=== PATIENT | female | born 1960 | race African-American/Black ===

== ENCOUNTER → 2016-11-21 | Outpatient (CLI) | payer OTHER ==
[2016-11-21 11:17] VITALS: BMI 27.1
== END ==
LOC: MNTWWP 11:00
PROVIDERS: ATTEND Family Medicine
DX: R73.09 Other abnormal glucose (principal)
CPT/HCPCS: 97802

== ENCOUNTER → 2016-12-18 | Outpatient (CLI) | payer OTHER ==
--- NOTE | 2016-12-20 09:34 | MM ---
Reason for exam: screening (asymptomatic). Last mammogram was performed 1 year ago. Physical Findings: A clinical breast exam by your physician is recommended on an annual basis and results should be correlated with mammographic findings. MG Screening Mammo w CAD Bilateral CC and MLO view(s) were taken. Prior study comparison: December 15, 2015, bilateral MG screening mammo w CAD. December 01, 2014, bilateral MG screening mammo w/o cad. There are scattered fibroglandular densities. Finding: There are typically benign linear fine calcifications in the right breast 2cm from the nipple. New finding since December 15, 2015. ASSESSMENT: Incomplete: need additional imaging evaluation, BI-RAD 0 RECOMMENDATION: Special view mammogram of the right breast. [facility] will attempt to contact patient to return for supplemental views.
== END | disposition home or self-care (01) ==
LOC: RADMAMWWP 08:40
PROVIDERS: ATTEND Family Medicine
DX: Z12.31 Encounter for screening mammogram for malignant neoplasm of breast (principal)

== ENCOUNTER → 2016-12-22 | Outpatient (CLI) | payer OTHER ==
--- NOTE | 2016-12-25 07:44 | MM ---
Reason for exam: additional evaluation requested from abnormal screening. Last mammogram was performed less than 1 month ago. Physical Findings: Nurse did not find any significant physical abnormalities on exam. MG Work Up Mamm w CAD RT LM and CC with magnification view(s) were taken of the right breast. Prior study comparison: December 18, 2016, bilateral MG screening mammo w CAD. December 15, 2015, bilateral MG screening mammo w CAD. There are scattered fibroglandular densities. Finding: There are fine, grouped/clustered calcifications in the 6 o'clock anterior position of the right breast 2 cm from the nipple consistent with prior exams on close examination. No significant changes in finding since December 18, 2016 and December 15, 2015. These results were verbally communicated with the patient and result sheet given to the patient on 12/22/16. ASSESSMENT: Benign, BI-RAD 2 RECOMMENDATION: Return to routine screening mammogram schedule for both breasts.
== END | disposition home or self-care (01) ==
LOC: RADMAMWWP 14:53
PROVIDERS: ATTEND Family Medicine
DX: R92.8 Other abnormal and inconclusive findings on diagnostic imaging of breast (principal)

== ENCOUNTER → 2017-12-10 | Outpatient (CLI) | payer OTHER ==
[2017-12-12 10:14] VITALS: BMI 24.7
== END | disposition home or self-care (01) ==
LOC: MNTWWP 12:43
PROVIDERS: ATTEND Family Medicine
DX: R73.09 Other abnormal glucose (principal)
CPT/HCPCS: 97802

== ENCOUNTER → 2017-12-19 | Outpatient (CLI) | payer OTHER ==
--- NOTE | 2017-12-20 13:26 | MM ---
Reason for exam: screening (asymptomatic). Last mammogram was performed 1 year ago. Physical Findings: A clinical breast exam by your physician is recommended on an annual basis and results should be correlated with mammographic findings. MG Screening Mammo w CAD Bilateral CC and MLO view(s) were taken. Prior study comparison: December 22, 2016, right breast MG work up mamm w CAD RT. December 18, 2016, bilateral MG screening mammo w CAD. No significant changes when compared with prior studies. ASSESSMENT: Benign, BI-RAD 2 RECOMMENDATION: Routine screening mammogram of both breasts in 1 year.
== END | disposition home or self-care (01) ==
LOC: RADMAMWWP 12:49
PROVIDERS: ATTEND Family Medicine
DX: Z12.31 Encounter for screening mammogram for malignant neoplasm of breast (principal)
CPT/HCPCS: 77067

== ENCOUNTER 2018-06-07 10:54 | Day surgery (SDC) | payer OTHER ==
[2018-06-04 14:12] VITALS: BMI 24.1
[~2018-06-07 10:54] MED LIST: LACTATED RINGERS 1,000 ML IV SCH
[2018-06-07 12:04] VITALS: RESP 16; TEMP 97.3
[2018-06-07] MEDS ORDERED: LIDOCAINE 1% 20 ML VIAL (10MG/ML) FOR IV START INTRADERMA ONE (12:09)
[2018-06-07] MEDS ORDERED: PROPOFOL 10 MG/ML 20 ML VIAL IV ONE (13:44)
--- NOTE | 2018-06-07 14:05 | P.PCN ---
Date of Procedure: 06/07/18 Procedure(s) Performed: BRIEF HISTORY: Patient is a 58-year-old pleasant -[place] female scheduled for an elective colonoscopy as a part of evaluation of prior history of colon polyps. Last colonoscopy was 5 years ago. PROCEDURE PERFORMED: Colonoscopy. PREOPERATIVE DIAGNOSIS: History of colon polyps. IV sedation per Anesthesia. PROCEDURE: After informed consent was obtained, the patient, was brought into the endoscopy unit. IV sedation was administered by Anesthesia under continuous monitoring. Digital rectal examination was normal. Initially the Olympus CF-160 flexible video colonoscope was then inserted in the rectum, gradually advanced into the cecum without any difficulty. Careful examination was performed as the scope was gradually being withdrawn. Ileocecal valve and the appendiceal orifice were visualized and appeared normal. Prep was poor and several areas of the colon. Mucosa of the cecum, ascending colon, transverse colon, descending colon, sigmoid colon, and rectum appeared normal. Retroflexion was performed in the rectum and no lesions were seen. The patient tolerated the procedure well. IMPRESSION: Normal-appearing colon from rectum to cecum with no evidence of colorectal neoplasia. Poor prep in several areas of the colon RECOMMENDATIONS: Findings of this examination were discussed with the patient as well as her family. She was advised to have a repeat surveillance colonoscopy in 5 years from now because of the prior history of colon polyps.
[2018-06-07 14:07] VITALS: PULSE 79
[2018-06-07 14:33] VITALS: BP 133/84
== END 2018-06-07 14:47 | disposition home or self-care (01) ==
LOC: ORWHC2ENDO 10:54
PROVIDERS: ATTEND Internal Medicine Gastroenterology
DX: Z12.11 Encounter for screening for malignant neoplasm of colon (principal); Z79.01 Long term (current) use of anticoagulants; Z79.899 Other long term (current) drug therapy; Z86.010 Personal history of colon polyps; I10 Essential (primary) hypertension; Z86.718 Personal history of other venous thrombosis and embolism; Z86.711 Personal history of pulmonary embolism; Z79.82 Long term (current) use of aspirin
CPT/HCPCS: J2704; G0105

== ENCOUNTER 2018-08-21 08:13 | Inpatient (IN) | payer OTHER ==
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
[2018-08-21 09:01] LABS: Basophils % (A) 1 %; Eosinophils # (A) 0.1 k/uL (0-0.7); Eosinophils % (A) 1 %; HCT 34.1 % (34.0-46.0); HGB 10.7 gm/dL (11.4-16.0); Hypochromasia Slight; Lymphocytes # (A) 2.5 k/uL (1.0-4.8); Lymphocytes % (A) 34 %; MCH 22.2 pg (25.0-35.0); MCHC 31.4 g/dL (31.0-37.0); MCV 70.9 fL (80.0-100.0); Mean Platelet Volume 6.7; Microcytosis Moderate; Monocytes # (A) 0.3 k/uL (0-1.0); Monocytes % (A) 4 %; Neutrophils # (A) 4.2 k/uL (1.3-7.7); Neutrophils % (A) 58 %; Platelet Count 264 k/uL (150-450); RBC 4.81 m/uL (3.80-5.40); RDW 15.7 % (11.5-15.5); WBC 7.2 k/uL (3.8-10.6)
[2018-08-21 09:06] LABS: Glucose,Whole Blood 100 mg/dL (75-99)
[2018-08-21 09:12] LABS: INR 0.9 (<1.2); Partial Thromboplastin Time 24.4 sec (22.0-30.0); Prothrombin Time 10.2 sec (9.0-12.0)
[2018-08-21 09:13] LABS: ALT 34 U/L (9-52); AST 35 U/L (14-36); African American GFR (CKD) >90 (>60 ml/min/1.73 sqM); Albumin 4.3 g/dL (3.5-5.0); Alcohol <10 mg/dL; Alkaline Phosphatase 97 U/L (38-126); Anion Gap 10 mmol/L; Blood Urea Nitrogen 35 mg/dL (7-17); Calcium 9.8 mg/dL (8.4-10.2); Carbon Dioxide 23 mmol/L (22-30); Chloride 105 mmol/L (98-107); Glucose 103 mg/dL (74-99); Potassium 4.2 mmol/L (3.5-5.1); Sodium 138 mmol/L (137-145); Total Bilirubin 0.5 mg/dL (0.2-1.3); Total Protein 7.8 g/dL (6.3-8.2)
[2018-08-21 09:16] LABS: Appearance,Urine Clear (Clear); Bacteria,Urine Rare /hpf; Bilirubin,Urine Negative (Negative); Blood,Urine Negative (Negative); Color,Urine Yellow; Glucose,Urine (UA) Negative (Negative); Ketones,Urine Negative (Negative); Leukocyte Esterase,Urine Large (Negative); Mucus,Urine Rare /hpf; Nitrite,Urine Negative (Negative); Protein,Urine Trace (Negative); RBC,Urine 4 /hpf (0-5); Specific Gravity,Urine 1.024 (1.001-1.035); Squamous Epithelial Cell,Urine 2 /hpf (0-4); Urobilinogen,Urine <2.0 mg/dL (<2.0); WBC,Urine 14 /hpf (0-5)
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
[2018-08-21 09:42] LABS: Amphetamine Screen,Urine Not Detected (NotDetected); Barbiturate Screen,Urine Not Detected (NotDetected); Benzodiazepines Screen,Urine Not Detected (NotDetected); Cocaine Screen,Urine Not Detected (NotDetected); Methadone Screen, Urine Not Detected (NotDetected); Opiate Screen,Urine Not Detected (NotDetected); Oxycodone Screen, Urine Not Detected (NotDetected); Phencyclidine Screen,Urine Not Detected (NotDetected); Tricyclic Antidepressant,Urine Not Detected (NotDetected); Urn Cannabinoid Scrn Not Detected (NotDetected)
[2018-08-21] MEDS: SODIUM CHLORIDE 0.9% 1,000 ML IV SCH ×2 (11:33→20:32)
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
[2018-08-21] MEDS ORDERED: ACETAMINOPHEN TAB 500 MG TAB PO STA (17:18)
[2018-08-21] MEDS: APIXABAN 5 MG TAB PO SCH (20:31)
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
[2018-08-22] MEDS: SODIUM CHLORIDE 0.9% 1,000 ML IV SCH ×2 (05:58→14:59)
[2018-08-22 07:28] LABS: Cholesterol 190 mg/dL (<200); HDL Cholesterol 56 mg/dL (40-60); LDL Cholesterol,Calculated 121 mg/dL (0-99); Triglycerides 66 mg/dL (<150)
--- NOTE | 2018-08-22 09:44 | ECHOF ---
Referral Reason:Thrombus MEASUREMENTS -------- HEIGHT: 167.6 cm WEIGHT: 68.0 kg BP: RVIDd: 2.2 cm (< 3.3) IVSd: 0.9 cm (0.6 - 1.1) LVIDd: 2.6 cm (3.9 - 5.3) LVPWd: 0.9 cm (0.6 - 1.1) IVSs: 1.3 cm LVIDs: 1.3 cm LVPWs: 1.6 cm LAESV Index (A-L): 20.69 ml/m Ao Diam: 3.3 cm (2.0 - 3.7) AV Cusp: 1.8 cm (1.5 - 2.6) LA Diam: 2.5 cm (2.7 - 3.8) MV EXCURSION: 17.310 mm (> 18.000) MV EF SLOPE: 56 mm/s (70 - 150) EPSS: 0.3 cm MV E Steffen: 1.03 m/s MV DecT: 209 ms MV A Steffen: 0.64 m/s MV E/A Ratio: 1.61 RAP: 5.00 mmHg RVSP: 32.95 mmHg FINDINGS -------- Sinus rhythm. This was a technically good study. The left ventricular size is normal. Left ventricular wall thickness is normal. Overall left vent ricular systolic function is normal with, an EF between 55 - 60 %. The right ventricle is normal in size. The left atrial size is normal. Normal LA size by volume 22+/-6 ml/m2. The right atrial size is normal. Interatrial and interventricular septum intact. The aortic valve is trileaflet and appears structurally normal. The mitral valve is normal. The mitral valve leaflets are mildly thickened. There is trace mitral regurgitation. Trace tricuspid regurgitation present. Right ventricular systolic pressure is normal at < 35 mmHg. Trace/mild (physiologic) pulmonic regurgitation. The aortic root size is normal. Normal inferior vena cava with normal inspiratory collapse consistent with estimated right atrial pre ssure of 5 mmHg. There is no pericardial effusion. CONCLUSIONS -------- 1. Sinus rhythm. 2. This was a technically good study. 3. The left ventricular size is normal. 4. Left ventricular wall thickness is normal. 5. Overall left ventricular systolic function is normal with, an EF between 55 - 60 %. 6. The right ventricle is normal in size. 7. The left atrial size is normal. 8. Normal LA size by volume 22+/-6 ml/m2. 9. The right atrial size is normal. 10. Interatrial and interventricular septum intact. 11. The aortic valve is trileaflet and appears structurally normal. 12. The mitral valve is normal. 13. The mitral valve leaflets are mildly thickened. 14. There is trace mitral regurgitation. 15. Trace tricuspid regurgitation present. 16. Right ventricular systolic pressure is normal at < 35 mmHg. 17. Trace/mild (physiologic) pulmonic regurgitation. 18. The aortic root size is normal. 19. Normal inferior vena cava with normal inspiratory collapse consistent with estimated right atrial pressure of 5 mmHg. 20. There is no pericardial effusion. PYRIDINE OPERATOR: Shante Hylton RDCS
[2018-08-22] MEDS: ASPIRIN 325 MG TAB PO SCH (10:03)
[2018-08-22] MEDS: METOPROLOL TARTRATE 25 MG TAB PO SCH (10:03)
[2018-08-22] MEDS: APIXABAN 5 MG TAB PO SCH ×2 (10:03→19:57)
[2018-08-22] MEDS: FERROUS SULFATE 325 MG TAB PO SCH (10:03)
[2018-08-22] MEDS: MULTIVITAMINS, THERA 1 EACH TAB PO SCH (10:03)
[2018-08-22 11:42] VITALS: BMI 24.5
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
[2018-08-23] MEDS: SODIUM CHLORIDE 0.9% 1,000 ML IV SCH ×2 (04:49→08:58)
[2018-08-23] MEDS: FERROUS SULFATE 325 MG TAB PO SCH (08:57)
[2018-08-23] MEDS: APIXABAN 5 MG TAB PO SCH ×2 (08:57→20:05)
[2018-08-23] MEDS: METOPROLOL TARTRATE 25 MG TAB PO SCH (08:57)
[2018-08-23] MEDS: MULTIVITAMINS, THERA 1 EACH TAB PO SCH (08:57)
[2018-08-23] MEDS: ASPIRIN 325 MG TAB PO SCH (08:57)
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
[2018-08-24] MEDS: SODIUM CHLORIDE 0.9% 1,000 ML IV SCH ×3 (01:08→19:57)
[2018-08-24] MEDS: MULTIVITAMINS, THERA 1 EACH TAB PO SCH (09:11)
[2018-08-24] MEDS: ASPIRIN 325 MG TAB PO SCH (09:11)
[2018-08-24] MEDS: METOPROLOL TARTRATE 25 MG TAB PO SCH (09:11)
[2018-08-24] MEDS: FERROUS SULFATE 325 MG TAB PO SCH (09:12)
[2018-08-24] MEDS: APIXABAN 5 MG TAB PO SCH ×2 (09:12→19:56)
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
[2018-08-25] MEDS: SODIUM CHLORIDE 0.9% 1,000 ML IV SCH ×2 (06:51→19:47)
[2018-08-25] MEDS: APIXABAN 5 MG TAB PO SCH ×2 (08:59→19:41)
[2018-08-25] MEDS: METOPROLOL TARTRATE 25 MG TAB PO SCH (08:59)
[2018-08-25] MEDS: ASPIRIN 325 MG TAB PO SCH (08:59)
[2018-08-25] MEDS: FERROUS SULFATE 325 MG TAB PO SCH (08:59)
[2018-08-25] MEDS: MULTIVITAMINS, THERA 1 EACH TAB PO SCH (08:59)
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
[2018-08-26] MEDS: SODIUM CHLORIDE 0.9% 1,000 ML IV SCH ×2 (03:43→20:18)
[2018-08-26] MEDS: ASPIRIN 325 MG TAB PO SCH (08:27)
[2018-08-26] MEDS: METOPROLOL TARTRATE 25 MG TAB PO SCH (08:27)
[2018-08-26] MEDS: FERROUS SULFATE 325 MG TAB PO SCH (08:27)
[2018-08-26] MEDS: MULTIVITAMINS, THERA 1 EACH TAB PO SCH (08:27)
[2018-08-26] MEDS: APIXABAN 5 MG TAB PO SCH ×2 (08:27→20:18)
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
[2018-08-27] MEDS: SODIUM CHLORIDE 0.9% 1,000 ML IV SCH (08:18)
[2018-08-27] MEDS: METOPROLOL TARTRATE 25 MG TAB PO SCH (08:22)
[2018-08-27] MEDS: MULTIVITAMINS, THERA 1 EACH TAB PO SCH (08:22)
[2018-08-27] MEDS: APIXABAN 5 MG TAB PO SCH (08:23)
[2018-08-27] MEDS: ASPIRIN 325 MG TAB PO SCH (08:23)
[2018-08-27] MEDS: FERROUS SULFATE 325 MG TAB PO SCH (08:23)
[2018-08-27 09:03] VITALS: RESP 20
[2018-08-27 11:46] VITALS: BP 116/56; PULSE 66; TEMP 97.9
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
== END 2018-08-27 14:24 | disposition home or self-care (01) | DRG 90 ==
LOC: EC 08:13 → 3SCARD 11:20 → OBSVTOIN 08-23 09:40
PROVIDERS: ADMIT Hospitalist; ATTEND Hospitalist
DX: S06.0X0A Concussion without loss of consciousness, initial encounter (principal); D56.3 Thalassemia minor; E86.0 Dehydration; I10 Essential (primary) hypertension; Z79.01 Long term (current) use of anticoagulants; Z79.82 Long term (current) use of aspirin; Z79.899 Other long term (current) drug therapy; Z86.718 Personal history of other venous thrombosis and embolism; Z86.711 Personal history of pulmonary embolism; Z90.49 Acquired absence of other specified parts of digestive tract; Z86.010 Personal history of colon polyps; Z95.828 Presence of other vascular implants and grafts; Z98.890 Other specified postprocedural states; V49.40XA Driver injured in collision with unspecified motor vehicles in traffic accident, initial encounter; Y92.414 Local residential or business street as the place of occurrence of the external cause; Z82.49 Family history of ischemic heart disease and other diseases of the circulatory system; Z83.2 Family history of diseases of the blood and blood-forming organs and certain disorders involving the immune mechanism; Z82.3 Family history of stroke; R29.2 Abnormal reflex; R26.2 Difficulty in walking, not elsewhere classified
CPT/HCPCS: 36415; 70450; 71046; 72170; 80053; 80061; 80306; 80320; 81001; 82607; 84484; 85025; 85610; 85730; 87086; 93005; 93306; 93880; 95816; 99285

== ENCOUNTER → 2018-12-23 | Outpatient (CLI) | payer OTHER ==
--- NOTE | 2018-12-23 12:10 | MM ---
Reason for exam: screening (asymptomatic). Last mammogram was performed 1 year ago. History: Patient is postmenopausal. Physical Findings: A clinical breast exam by your physician is recommended on an annual basis and results should be correlated with mammographic findings. MG Screening Mammo w CAD Bilateral CC and MLO view(s) were taken. Prior study comparison: December 19, 2017, bilateral MG screening mammo w CAD. December 22, 2016, right breast MG work up mamm w CAD RT. The breast tissue is heterogeneously dense. This may lower the sensitivity of mammography. No suspicious abnormality. No significant changes when compared with prior studies. ASSESSMENT: Negative, BI-RAD 1 RECOMMENDATION: Routine screening mammogram of both breasts in 1 year.
== END ==
LOC: RADMAMWWP 10:27
PROVIDERS: ATTEND Family Medicine
DX: Z12.31 Encounter for screening mammogram for malignant neoplasm of breast (principal)
CPT/HCPCS: 77067

== ENCOUNTER → 2020-01-19 | Outpatient (CLI) | payer OTHER ==
--- NOTE | 2020-01-19 09:28 | CT ---
EXAMINATION TYPE: CT lumbar spine wo con DATE OF EXAM: 01/19/2020 COMPARISON: None HISTORY: 59-year-old female low back pain TECHNIQUE: Contiguous axial scanning of the lumbar spine without IV contrast. Coronal and sagittal re constructions performed. CT DLP: 781 mGycm Automated exposure control for dose reduction was used. FINDINGS: IVC filter. Some surgical material in the right side of the abdomen from prior bowel surgery. Partial ly visualized hypodense lesion measuring at least 1.6 cm left kidney, probable cyst. Small T12 ribs. Transitional lumbosacral segment with a sacralized L5 vertebral body. Vertebral body heights are preserved and alignment is maintained. At T11-T12, mild posterior disc bulge impressing onto the ventral thecal sac without significant spin al canal or neural foraminal stenosis. At T12-L1, minimal posterior disc bulge without significant canal or foraminal stenosis. At L1-L2, minimal bulging disc and some facet degenerative change. Mild left neuroforaminal narrowing . No spinal canal stenosis. At L2-L3, no significant canal or foraminal stenosis. At L3-L4, mild disc bulge with facet arthropathy. Changes result in mild bilateral neuroforaminal [place] rowing. No spinal canal stenosis. At L4-L5, there is a larger diffuse disc bulge moderately narrowing the spinal canal. Along with face t arthropathy, there is moderate right greater than left neural foraminal stenosis. At L5-S1, fused level without canal or foraminal stenosis. IMPRESSION: 1. SMALL T12 RIBS. ALSO, TRANSITIONAL LUMBOSACRAL SEGMENT WITH A SACRALIZED L5 VERTEBRAL BODY. 2. MILD DEGENERATIVE DISC DISEASE WITH DISC BULGING IS SCATTERED FACET ARTHROPATHY. 3. BROAD-BASED POSTERIOR DISC HERNIATION AT L4-L5 CAUSING MODERATE SPINAL CANAL STENOSIS. ALONG WITH FACET ARTHROPATHY, THERE IS MODERATE RIGHT GREATER THAN LEFT NEUROFORAMINAL STENOSIS. 4. MILD BILATERAL NEUROFORAMINAL NARROWING AT L3-L4 AND MILD ON THE LEFT AT L1-L2.
== END | disposition home or self-care (01) ==
LOC: RADCTMAIN 08:03
PROVIDERS: ATTEND Psychiatry & Neurology Neurology
DX: M48.061 Spinal stenosis, lumbar region without neurogenic claudication (principal); M51.36 Other intervertebral disc degeneration, lumbar region; M51.26 Other intervertebral disc displacement, lumbar region
CPT/HCPCS: 72131

== ENCOUNTER → 2021-03-03 | Outpatient (CLI) | payer OTHER ==
--- NOTE | 2021-03-03 16:28 | BD ---
EXAMINATION TYPE: Axial Bone Density DATE OF EXAM: 03/03/2021 COMPARISON: NONE CLINICAL HISTORY: Height: 66.5 Weight: 165.4 FRAX RISK QUESTIONS: Alcohol (3 or more units per day): no Family History (Parent hip fracture): no Glucocorticoids (More than 3mos): no (Ex: prednisone, prednisolone, methylprednisolone, dexamethasone, and hydrocortisone). History of Fracture in Adulthood: no Secondary Osteoporosis: 1. Type 1 Diabetes: no 2. Hyperthyroidism: no 3. Menopause before 45: no 4. Malnutrition: no 5. Chronic liver disease: no Rheumatoid Arthritis: no Current Tobacco Use: no RISK FACTORS HISTORY OF: Surgery to Spine/Hip(right/left)/Wrist (right/left): no Family History of Osteoporosis: no Active: yes Diet low in dairy products/other sources of calcium: yes Postmenopausal woman: yes Lost more than 2 inches in height since high school: no MEDICATIONS: eliquis, metroprolol Additional History: EXAM MEASUREMENTS: Bone mineral densitometry was performed using the [employer]. Bone mineral density as measured about the Lumbar spine is: ----- L1-L4(G/cm2): 0.852 T Score Values are as follows: ----- L2: -3.5 ----- L3: -2.0 ----- L4: -2.3 ----- L1-L4: -2.7 Bone mineral density : baseline Bone mineral density about the R hip (g/cm2): 0.730 Bone mineral density about the L hip (g/cm2): 0.861 T Score values are as follows: -----R Neck: -2.2 -----L Neck: -1.3 -----R Total: -2.6 -----L Total: -2.1 Bone mineral density : baseline IMPRESSION: Osteoporosis (T Score less than -2.5). There is increased fracture risk and therapy is usually indicated based on age. Re-Screen 1-2 years. NOTE: T-SCORE=SD OF THE YOUNG ADULT MEAN.
== END | disposition home or self-care (01) ==
LOC: RADBDWWP 15:23
PROVIDERS: ATTEND Family Medicine
DX: M81.0 Age-related osteoporosis without current pathological fracture (principal)
CPT/HCPCS: 77080

== ENCOUNTER → 2021-03-18 | Outpatient (CLI) | payer OTHER ==
--- NOTE | 2021-02-12 11:30 | ECHOF ---
Referral Reason:M54.50 Low back pain MEASUREMENTS -------- HEIGHT: 170.2 cm WEIGHT: 74.8 kg BP: RVIDd: 2.9 cm (< 3.3) IVSd: 1.5 cm (0.6 - 1.1) LVIDd: 2.4 cm (3.9 - 5.3) LVPWd: 1.6 cm (0.6 - 1.1) IVSs: 1.6 cm LVIDs: 1.5 cm LVPWs: 1.9 cm LAESV Index (A-L): 27.87 ml/m Ao Diam: 3.3 cm (2.0 - 3.7) AV Cusp: 2.3 cm (1.5 - 2.6) LA Diam: 3.1 cm (2.7 - 3.8) MV EXCURSION: 17.180 mm (> 18.000) MV EF SLOPE: 8 mm/s (70 - 150) EPSS: 0.2 cm MV E Steffen: 0.51 m/s MV DecT: 402 ms MV A Steffen: 0.84 m/s MV E/A Ratio: 0.61 RAP: 5.00 mmHg RVSP: 36.82 mmHg FINDINGS -------- Sinus rhythm. This was a technically adequate study. The left ventricular size is normal. There is moderate concentric left ventricular hypertrophy. O verall left ventricular systolic function is normal with, an EF between 55 - 60 %. Septal wall linsey on is delayed and consistent with prior cardiac surgery. The right ventricle is normal in size. Normal LA size by volume 22+/-6 ml/m2. The right atrial size is normal. Interatrial and interventricular septum intact. The aortic valve is trileaflet and appears structurally normal. There is no evidence of aortic regu rgitation. There is no evidence of aortic stenosis. No mitral regurgitation. Mild tricuspid regurgitation present. There is borderline pulmonary hypertension. The right ventr icular systolic pressure, as measured by Doppler, is 36.82mmHg. Trace/mild (physiologic) pulmonic regurgitation. The aortic root size is normal. IVC Not well visulized. There is no pericardial effusion. CONCLUSIONS -------- 1. The left ventricular size is normal. 2. There is moderate concentric left ventricular hypertrophy. 3. Overall left ventricular systolic function is normal with, an EF between 55 - 60 %. 4. Mild tricuspid regurgitation present. 5. There is borderline pulmonary hypertension. 6. The right ventricular systolic pressure, as measured by Doppler, is 36.82mmHg. 7. Trace/mild (physiologic) pulmonic regurgitation. STRAW HAT BRUSHER: Gloria Buitrago RDCS
--- NOTE | 2021-03-21 09:51 | MM ---
Reason for exam: screening (asymptomatic). Last mammogram was performed 2 years and 3 months ago. History: Patient is postmenopausal. Physical Findings: A clinical breast exam by your physician is recommended on an annual basis and results should be correlated with mammographic findings. MG Screening Mammo w CAD Bilateral CC and MLO view(s) were taken. Prior study comparison: December 23, 2018, bilateral MG screening mammo w CAD. December 19, 2017, bilateral MG screening mammo w CAD. There are scattered fibroglandular densities. There is no discrete abnormality. No significant changes when compared with prior studies. ASSESSMENT: Negative, BI-RAD 1 RECOMMENDATION: Routine screening mammogram of both breasts in 1 year.
== END | disposition home or self-care (01) ==
LOC: RADECHMAIN 02-11 11:31
PROVIDERS: ATTEND Family Medicine
DX: Z12.31 Encounter for screening mammogram for malignant neoplasm of breast (principal); I07.1 Rheumatic tricuspid insufficiency; I37.1 Nonrheumatic pulmonary valve insufficiency; Z78.0 Asymptomatic menopausal state
CPT/HCPCS: 77067; 93306

== ENCOUNTER → 2023-02-02 | Outpatient (CLI) | payer OTHER ==
--- NOTE | 2023-02-07 12:13 | MM ---
Reason for Exam: Screening (asymptomatic). Last mammogram was performed 1 year(s) and 10 month(s) ago. Patient History: Menarche at age 13. First Full-Term at age 23. Postmenopausal. Risk Values: Dawn 5 year model risk: 1.2%. NCI Lifetime model risk: 4.9%. Prior Study Comparison: 12/19/2017 Bilateral Screening Mammogram, [facility]. 12/23/2018 Bilateral Screening Mammogram, [facility]. 03/18/2021 Bilateral Screening Mammogram, [facility]. Tissue Density: The breast tissue is heterogeneously dense. This may lower the sensitivity of mammography. Findings: Analyzed By CAD. There is no suspicious group of microcalcifications or new suspicious mass. Overall Assessment: Negative, BI-RAD 1 Management: Screening Mammogram of both breasts in [address] [facility] will attempt to contact patient to return for supplemental views and ultrasound if indicated. Patient should continue monthly self-breast exams. A clinical breast exam by your physician is recommended on an annual basis. This exam should not preclude additional follow-up of suspicious palpable abnormalities. Note on Dawn scores and lifetime risk: 1. A Dawn score greater than 3% is considered moderate risk. If this is the case, consider specialist referral to assess eligibility for a risk reducing agent. 2. If overall lifetime risk for the development of breast cancer is 20% or higher, the patient may qualify for future screening with alternating mammogram and breast MRI. Electronically signed and approved by: Keith Patricia DO
== END | disposition home or self-care (01) ==
LOC: RADMAMWWP 08:07
PROVIDERS: ATTEND Family Medicine
DX: Z12.31 Encounter for screening mammogram for malignant neoplasm of breast (principal); Z78.0 Asymptomatic menopausal state
CPT/HCPCS: 77067

== ENCOUNTER → 2023-07-13 | Outpatient (CLI) | payer OTHER ==
--- NOTE | 2023-07-13 13:04 | CA ---
Transthoracic Echo Report Name: Pernell Tavares Age: 63 Gender: F : 1960 Exam Date: 07/13/2023 11:48 Exam Location: [facility] [facility] Ht (in): 67 Wt (lb): 175 Ordering Physician: Shamar Villa DO Attending/Referring Phys: Shamar Villa DO Hospital Product Specialist Pilar Verma RDCS Procedure CPT: Indications: R01.1 CARDIAC MURMUR, UNSPECIFIED Cardiac Hx: Technical Quality: Good Contrast 1: Total Dose (mL): Contrast 2: Total Dose (mL): MEASUREMENTS (Male / Female) Normal Values 2D ECHO LV Diastolic Diameter PLAX 3.5 cm 4.2 - 5.9 / 3.9 - 5.3 cm LV Systolic Diameter PLAX 2.4 cm IVS Diastolic Thickness 1.1 cm 0.6 - 1.0 / 0.6 - 0.9 cm LVPW Diastolic Thickness 1.2 cm 0.6 - 1.0 / 0.6 - 0.9 cm LV Relative Wall Thickness 0.6 RV Internal Dim ED PLAX 2.8 cm LA Systolic Diameter LX 3.0 cm 3.0 - 4.0 / 2.7 - 3.8 cm LV Diastolic Volume MOD 4C 132.9 cm??? LV Systolic Volume MOD 4C 53.9 cm??? LV Ejection Fraction MOD 4C 59.4 % LV Cardiac Index MOD 4C 3638.2 cm???/min???m??? LV Diastolic Length 4C 8.6 cm LV Systolic Length 4C 6.8 cm LV Diastolic Volume MOD 2C 94.1 cm??? LV Systolic Volume MOD 2C 47.8 cm??? LV Ejection Fraction MOD 2C 49.1 % LV Cardiac Index MOD 2C 2129.5 cm???/min???m??? LV Diastolic Length 2C 7.8 cm LV Systolic Length 2C 6.4 cm LA Volume 58.1 cm??? 18 - 58 / 22 - 52 cm??? LA Volume Index 29.7 cm???/m??? 16 - 28 cm???/m??? M-MODE Aortic Root Diameter MM 3.4 cm AV Cusp Separation MM 2.5 cm DOPPLER AV Peak Velocity 114.6 cm/s AV Peak Gradient 5.3 mmHg MV Area PHT 2.3 cm??? Mitral E Point Velocity 76.6 cm/s Mitral A Point Velocity 97.1 cm/s Mitral E to A Ratio 0.8 MV Deceleration Time 330.3 ms TR Peak Velocity 280.5 cm/s TR Peak Gradient 31.5 mmHg Right Ventricular Systolic Press 36.2 mmHg FINDINGS Left Ventricle Left ventricular ejection fraction is estimated at 55-60 %. Left ventricular cavity size normal. Mildly increased septal wall thickness. Mildly increased posterior wall thickness. Normal left ventricular wall motion. Right Ventricle Normal right ventricular size and function. Mild pulmonary hypertension. Right Atrium Normal right atrial size. No right atrial thrombus or mass seen. Left Atrium Mildly increased left atrial volume. Mitral Valve Structurally normal mitral valve. No mitral stenosis, regurgitation or prolapse. Aortic Valve Trileaflet aortic valve. No aortic valve stenosis or regurgitation. Tricuspid Valve Structurally normal tricuspid valve. Mild tricuspid regurgitation. Pulmonic Valve Structurally normal pulmonic valve. Trace pulmonic regurgitation. Pericardium No pericardial or pleural effusion. Aorta Normal size aortic root and proximal ascending aorta. CONCLUSIONS Normal LV size and systolic function. No significant abnormality on the Doppler exam. No pericardial effusion. No significant pulmonary hypertension Previewed by: Dr. Indy Gold MD (Electronically Signed) Final Date: 13 Jul 2023 13:03
== END | disposition home or self-care (01) ==
LOC: RADECHMAIN 11:33
PROVIDERS: ATTEND Family Medicine
DX: R01.1 Cardiac murmur, unspecified (principal)
CPT/HCPCS: 93306

== ENCOUNTER → 2023-07-20 | Outpatient (CLI) | payer OTHER ==
--- NOTE | 2023-07-20 13:07 | CT ---
EXAMINATION TYPE: CT brain wo con CT DLP: 1147 mGycm, Automated exposure control for dose reduction was used. DATE OF EXAM: 07/20/2023 11:39 AM COMPARISON: . CLINICAL INDICATION:Female, 63 years old with history of G45.9 TIA, loss of balance TECHNIQUE: Brain: Axial CT images of the brain were obtained with coronal and sagittal reformats created and rev iewed. Contrast used: None. Oral contrast used: None. FINDINGS: Brain: Extra-axial spaces: No abnormal extra-axial fluid collections. Ventricular system: Mildly prominent ventricles and sulci suggesting early, mild involution. Cerebral parenchyma: No acute intraparenchymal hemorrhage or mass effect. The yang-white junction is well differentiated. Scattered hypoattenuating areas are seen within the white matter. Cerebellum: Unremarkable. Mass effect: No evidence of midline shift. Intracranial vasculature: unremarkable Soft tissues: Normal. Calvarium/osseous structures: No depressed skull fracture. Paranasal sinuses and mastoid air cells: Mild scattered paranasal sinus disease. Visualized orbits: Orbital contents are intact. IMPRESSION: No acute intracranial process. Early, mild age-related findings.
== END | disposition home or self-care (01) ==
LOC: RADCTMAIN 11:06
PROVIDERS: ATTEND Psychiatry & Neurology Neurology
DX: G45.9 Transient cerebral ischemic attack, unspecified (principal)
CPT/HCPCS: 70450

== ENCOUNTER → 2024-02-04 | Outpatient (CLI) | payer OTHER ==
--- NOTE | 2024-02-07 08:12 | MM ---
Reason for Exam: Screening (asymptomatic). Last screening mammogram was performed 12 month(s) ago. Patient History: Menarche at age 13. First Full-Term at age 23. Postmenopausal. Risk Values: Dawn 5 year model risk: 1.3%. NCI Lifetime model risk: 4.8%. Prior Study Comparison: 12/23/2018 Bilateral Screening Mammogram, [facility]. 03/18/2021 Bilateral Screening Mammogram, [facility]. 02/02/2023 Bilateral MG screening mammo w CAD, [facility]. Tissue Density: The breasts are heterogeneously dense, which may obscure small masses. Findings: Analyzed By CAD. There is no suspicious group of microcalcifications or new suspicious mass in either breast. Benign-appearing lymph nodes. Overall Assessment: Benign, BI-RAD 2 Management: Screening Mammogram of both breasts in 1 year. . Patient should continue monthly self-breast exams. A clinical breast exam by your physician is recommended on an annual basis. This exam should not preclude additional follow-up of suspicious palpable abnormalities. Note on Dawn scores and lifetime risk: 1. A Dawn score greater than 3% is considered moderate risk. If this is the case, consider specialist referral to assess eligibility for a risk reducing agent. 2. If overall lifetime risk for the development of breast cancer is 20% or higher, the patient may qualify for future screening with alternating mammogram and breast MRI. [facility], , 02/07/2024 8:09 AM. Electronically signed and approved by: Victor Hugo Harris M.D. Radiologis
== END | disposition home or self-care (01) ==
LOC: RADMAMWWP 08:25
PROVIDERS: ATTEND Family Medicine
DX: Z12.31 Encounter for screening mammogram for malignant neoplasm of breast (principal); Z78.0 Asymptomatic menopausal state; R92.333 Mammographic heterogeneous density, bilateral breasts
CPT/HCPCS: 77067